=== PATIENT | male | born 1970 | race Caucasian/White ===

== ENCOUNTER 2021-01-27 16:08 | Emergency (ER) | payer OTHER ==
[~2021-01-27] VITALS: Ht 172.7 cm; Wt 99.8 kg
== END 2021-01-27 19:10 | disposition home or self-care (01) ==
LOC: ED 16:08
DX: M79.81 Nontraumatic hematoma of soft tissue (principal); N21.0 Calculus in bladder; I10 Essential (primary) hypertension; Z87.891 Personal history of nicotine dependence
CPT/HCPCS: 74177; 80053; 81001; 85025; 99284-25; J7030; Q9967